=== PATIENT | female | born 1980 | race African-American/Black ===

== ENCOUNTER 2017-07-19 14:17 | Outpatient (CLI) | payer MEDICAID | END 2017-07-19 14:18 | disposition critical access hospital (66) | LOC: EMS 14:17 | PROVIDERS: ATTEND Surgery | DX: O72.1 Other immediate postpartum hemorrhage (principal); R42 Dizziness and giddiness; R10.9 Unspecified abdominal pain | CPT/HCPCS: A0425; A0427 ==

== ENCOUNTER 2017-07-19 14:33 | Inpatient (IN) | payer MEDICAID ==
[2017-07-19] MEDS ORDERED: SODIUM CHLORIDE 0.9% 1,000 ML IV ONE (14:39)
[2017-07-19] MEDS ORDERED: OXYTOCIN 10 UNIT/ML VIAL IV ONE (14:41)
--- NOTE | 2017-07-19 14:42 | ED Physician Documentation ---
History of Present Illness - Stated complaint Stated Complaint: POST COMPLICATION - History obtained from History obtained from: Patient - History of Present Illness Timing: Other (36-year-old otherwise healthy who just gave today and had a lot of blood loss with some hypotension in route. She received 10 Units of Pitocin IM.) Review of Systems Ten Systems: 10 systems reviewed and negative Constitutional: reports: Reviewed and negative Nose: reports: Reviewed and negative Cardiac: reports: Reviewed and negative Respiratory: reports: Reviewed and negative PD PAST MEDICAL HISTORY - Past Medical History Past Medical History: No - Past Surgical History Past Surgical History: No - Present Medications Home Medications: Ambulatory Orders Medication Instructions Recorded Confirmed No Known Home Medications [No 07/19/17 07/19/17 Known Home Medications] - Allergies Allergies/Adverse Reactions: Allergies Allergy/AdvReac Type Severity Reaction Status Date / Time No Known Drug Allergies Allergy Verified 07/19/17 14:42 - Social History Does the pt smoke?: No Does the pt drink ETOH?: No Does the pt have substance abuse?: No - Family History Family history: reports: Non contributory PD ED PE NORMAL - Vitals Vital signs reviewed: Yes (tachycardic, not hypotensive) - General General: Alert and oriented X 3, No acute distress - HEENT HEENT: PERRL, EOMI - Neck Neck: Supple, no meningeal sign, No bony TTP - Cardiac Cardiac: RRR, No murmur, Strong equal pulses - Respiratory Respiratory: No respiratory distress, Clear bilaterally - Abdomen Abdomen: Non tender, Other (firm fundus) - Back Back: No CVA TTP, No spinal TTP - Extremities Extremities: No edema, No calf tenderness / cord - Neuro Neuro: Alert and oriented X 3, Normal speech - Psych Psych: Normal mood, Normal affect Results - Vitals Vitals: Vital Signs - 24 hr 07/19/17 14:38 Heart Rate 112 H Respiratory 20 Rate Blood Pressure 121/86 H O2 Saturation 100 Oxygen O2 Source Room air - Labs Labs: Laboratory Tests 07/19/17 14:35 WBC 25.5 H RBC 3.48 L Hgb 10.3 L Hct 30.4 L MCV 87.5 MCH 29.5 MCHC 33.7 RDW 13.0 Plt Count 246 MPV 8.4 PD MEDICAL DECISION MAKING - ED course ED course: 36-year-old woman with hemorrhage. Labs were checked and Pitocin was started. Do not think she needs uncrossed matched blood urgently she seems hemodynamically okay. Dr. Pena, OB was at bedside on arrival. He will admit her for further evaluation and treatment, her initial H&H is reassuring but will need to be trended. Departure - Departure Disposition: 66 [facility] DC/Xfer Clinical Impression: hemorrhage Qualifiers: hemorrhage type: secondary hemorrhage Qualified Code(s): O72.2 - Delayed and secondary hemorrhage Condition: Stable
[2017-07-19 14:53] LABS: BASOPHILS % (AUTO) 0.1 %; HGB - HEMOGLOBIN 10.3 g/dL (12.0-16.0); LYMPHOCYTES % (AUTO) 5.5 %; MEAN CORPUSCULAR HEMOGLOBIN 29.5 pg (27.0-31.0); MEAN CORPUSCULAR HGB CONC 33.7 g/dL (32.0-36.0); MEAN CORPUSCULAR VOLUME 87.5 fL (81.0-99.0); MEAN PLATELET VOLUME 8.4 fL (7.9-10.8); MONOCYTES % (AUTO) 4.4 %; PLT - PLATELET COUNT 246 10^3/uL (130-450); RED BLOOD COUNT 3.48 10^6/uL (4.20-5.40); WHITE BLOOD COUNT 25.5 x10^3/uL (4.8-10.8)
[2017-07-19 14:56] LABS: ABNORMAL LYMPHS % (MANUAL) 0 %; BAND NEUTROPHILS % (MANUAL) 0 %
[2017-07-19] MEDS ORDERED: HYDROmorphone 1 MG/ML CARPUJECT IVP STA (15:15)
[2017-07-19] MEDS ORDERED: HYDROmorphone 1 MG/ML CARPUJECT ONE (15:17)
[2017-07-19] MEDS ORDERED: ONDANSETRON 4 MG/2 ML VIAL IVP PRN (15:19)
[2017-07-19] MEDS ORDERED: SODIUM CHLORIDE FLUSH 0.9% 10 ML SYRINGE IVP PRN (15:19)
[2017-07-19 15:20] LABS: ALBUMIN 2.8 g/dL (3.2-5.5); ALBUMIN/GLOBULIN RATIO 0.8 (1.0-2.2); BILIRUBIN,TOTAL 0.6 mg/dL (0.2-1.0); CALCIUM 8.8 mg/dL (8.5-10.3); CREATININE 0.7 mg/dL (0.4-1.0); TOTAL PROTEIN 6.2 g/dL (6.7-8.2)
[2017-07-19 15:55] LABS: LYMPHOCYTES # (MANUAL) 1.3 10^3/uL (1.5-3.5); LYMPHOCYTES % (MANUAL) 5 %; MONOCYTES # (MANUAL) 1.8 10^3/uL (0.0-1.0); NEUTROPHILS # (MANUAL) 22.4 10^3/uL (1.5-6.6); NEUTROPHILS % (MANUAL) 88 %; PLATELET MORPHOLOGY RARE GIANT PLATELETS (NORMAL); RBC MORPHOLOGY (MULTIPLE) NORMAL APPEARANCE (NORMAL)
[2017-07-19 15:56] LABS: DIFFERENTIAL COMMENT MANUAL DIFFERENTIAL; PLATELET ESTIMATE, MANUAL NORMAL (130-450,000) (NORMAL)
--- NOTE | 2017-07-19 16:23 | Ultrasound Report ---
EXAM: PELVIS ULTRASOUND, LIMITED EXAM DATE: 07/19/2017 04:05 PM. CLINICAL HISTORY: Post hemorrhage. COMPARISON: None. TECHNIQUE: Real-time scanning was performed with static images obtained. FINDINGS: The uterus measures 21.6 x 10.5 x 9.5 cm. Volume is 1356 cc. The endometrium is heterogeneous and thickened up to 3.2 cm. No evidence of vascularity. There is het erogeneous thickening within the cervix. No imaging of the adnexa was performed. IMPRESSION: 1. Enlarged uterus. 2. There is heterogeneous thickening of the endometrium and endocervical regions. No focal vascularit y is seen. Findings may represent blood clot and/or devascularized tissue. No sonographic evidence of vascular retained products of conception. [facility] Referring Provider Line: [phone] SITE ID: [id number]
[2017-07-19] MEDS: IBUPROFEN 600 MG TABLET PO PRN (17:48)
[2017-07-19] MEDS: HYDROcod/ACETAM 5/325 MG TABLET PO PRN (17:48)
[2017-07-19] MEDS ORDERED: HYDROmorphone 1 MG/ML CARPUJECT IVP SCH (19:00)
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
[2017-07-19 19:56] LABS: BASOPHILS % (AUTO) 0.1 %; EOSINOPHILS % (AUTO) 0.1 %; HGB - HEMOGLOBIN 7.1 g/dL (12.0-16.0); MEAN CORPUSCULAR HEMOGLOBIN 29.2 pg (27.0-31.0); MEAN CORPUSCULAR HGB CONC 33.5 g/dL (32.0-36.0); MEAN PLATELET VOLUME 8.2 fL (7.9-10.8); MONOCYTES % (AUTO) 7.3 %; NEUTROPHILS % (AUTO) 82.5 %; PLT - PLATELET COUNT 205 10^3/uL (130-450); RED BLOOD COUNT 2.42 10^6/uL (4.20-5.40); RED CELL DISTRIBUTION WIDTH 13.1 % (12.0-15.0); WHITE BLOOD COUNT 20.4 x10^3/uL (4.8-10.8)
[2017-07-19 20:02] LABS: ABNORMAL LYMPHS % (MANUAL) 0 %
[2017-07-19] MEDS: oxyCOD/ACETAMIN 5 MG/325 MG TABLET PO PRN (20:15)
[2017-07-19 20:18] LABS: BAND NEUTROPHILS % (MANUAL) 2 %; LYMPHOCYTES % (MANUAL) 10 %; NEUTROPHILS # (MANUAL) 17.3 10^3/uL (1.5-6.6); NEUTROPHILS % (MANUAL) 83 %; PLATELET ESTIMATE, MANUAL NORMAL (130-450,000) (NORMAL); PLATELET MORPHOLOGY NORMAL APPEARANCE (NORMAL)
[2017-07-20] MEDS: HYDROcod/ACETAM 5/325 MG TABLET PO PRN (00:50)
[2017-07-20] MEDS: IBUPROFEN 600 MG TABLET PO PRN ×2 (00:50→15:49)
[2017-07-20 05:21] LABS: MEAN CORPUSCULAR HEMOGLOBIN 29.2 pg (27.0-31.0); MEAN CORPUSCULAR HGB CONC 33.5 g/dL (32.0-36.0); MEAN CORPUSCULAR VOLUME 87.2 fL (81.0-99.0); MEAN PLATELET VOLUME 7.9 fL (7.9-10.8); MONOCYTES % (AUTO) 5.4 %; NEUTROPHILS % (AUTO) 74.5 %; PLT - PLATELET COUNT 193 10^3/uL (130-450); RED BLOOD COUNT 2.21 10^6/uL (4.20-5.40); RED CELL DISTRIBUTION WIDTH 13.1 % (12.0-15.0); WHITE BLOOD COUNT 15.2 x10^3/uL (4.8-10.8)
[2017-07-20 05:22] LABS: BASOPHILS # (AUTO) 0.1 10^3/uL (0.0-0.1); BASOPHILS % (AUTO) 0.4 %; EOSINOPHILS # (AUTO) 0.1 10^3/uL (0.0-0.7); EOSINOPHILS % (AUTO) 0.7 %; LYMPHOCYTES # (AUTO) 2.9 10^3/uL (1.5-3.5); MONOCYTES # (AUTO) 0.8 10^3/uL (0.0-1.0); NEUTROPHILS # (AUTO) 11.3 10^3/uL (1.5-6.6)
[2017-07-20 05:25] LABS: HGB - HEMOGLOBIN 6.5 g/dL (12.0-16.0)
--- NOTE | 2017-07-20 07:32 | PROVIDER PROGRESS NOTE ---
Subjective - Prog Note Date Prog Note Date: 07/20/17 Prog Note Time: 06:30 - Subjective Pt reports feeling: No change Subjective: Mrs. Conway feels well but very weak. She has gotten up to void and walk for short distances around the room. She is breast-feeding without difficulty. She reports no syncopal episodes, chest pain, shortness of breath, orthostatic dizziness or continued uterine bleeding. Baby is doing well. She continues to note uterine contractions but much less intensity than yesterday during the Pitocin infusion started on admission. We discussed her morning hemoglobin of 6.5 and possible problems associated with it such as syncope poor exercise tolerance extreme fatigue etc. The benefits of transfusion were explained mostly faster recovery from delivery. Also, we discussed some of the drawbacks such as transfusion reaction undetected hepatitis or HIV. At this point, the patient would like to avoid transfusion and determine if she has enough strength and endurance as she resumes more normal activity. Objective - Vital Signs/Intake & Output Vital Signs: Vital Signs x48h Temp Pulse Resp BP Pulse Ox 07/20/17 06:58 117/70 99 07/20/17 05:00 98.2 F 87 16 109/62 98 07/19/17 23:35 98.6 F 83 16 111/65 Intake & Output: Intake & Output 07/17/17 07/18/17 07/19/17 07/20/17 23:59 23:59 23:59 23:59 Intake Total 1250 Output Total 260 Balance 990 - Lab Results Fish Bones: 07/20/17 05:10 07/19/17 14:35 Other Labs: Lab Results x24hrs 07/20/17 07/19/17 Range/Units 05:10 19:50 WBC 15.2 H 20.4 H (4.8-10.8) x10^3/uL RBC 2.21 L 2.42 L (4.20-5.40) 10^6/uL Hgb 6.5 L* 7.1 L (12.0-16.0) g/dL Hct 19.3 L* 21.1 L (37.0-47.0) % MCV 87.2 87.0 (81.0-99.0) fL MCH 29.2 29.2 (27.0-31.0) pg MCHC 33.5 33.5 (32.0-36.0) g/dL RDW 13.1 13.1 (12.0-15.0) % Plt Count 193 205 (130-450) 10^3/uL MPV 7.9 8.2 (7.9-10.8) fL Neut # 11.3 H Not Reportable Lymph # 2.9 Not Reportable Antelope # 0.8 Not Reportable Eos # 0.1 Not Reportable Baso # 0.1 Not Reportable Absolute Nucleated RBC 0.01 Not Reportable Total Counted 100 Band Neuts % (Manual) 2 (0 - 10) % Abnorm Lymph % (Manual) 0 % Nucleated RBC % 0.0 Not Reportable Neutrophils # (Manual) 17.3 H (1.5-6.6) 10^3/uL Lymphocytes # (Manual) 2.0 (1.5-3.5) 10^3/uL Monocytes # (Manual) 1.0 (0.0-1.0) 10^3/uL Eosinophils # (Manual) 0.0 (0-0.7) 10^3/uL Basophils # (Manual) 0.0 (0-0.1) 10^3/uL Manual Slide Review Indicated Platelet Estimate NORMAL (130-450,000) (NORMAL) Platelet Morphology NORMAL APPEARANCE (NORMAL) RBC Morph Micro Appear 1+ HYPOCHROMASIA (NORMAL) Physical Exam - Physical Exam General: positive: No acute distress, Other (Fairly alert cooperative and oriented) HEENT: positive: Moist mucous membranes, Dentition normal Neck: positive: Supple w/out meningeal sx Cardiac: positive: Regular Rate, Murmur Present (Flow murmur but no rubs clicks or diastolic component) Resipratory: positive: Clear to ausultation maranda Abdomen: positive: Normal Bowel sounds, Other (Nontender nondistended) Female : positive: Normal external (Pad check shows little new vaginal bleeding, no foul smell), Enlarged uterus (16 weeks size, firm nontender), Putty Worker present Extremities: positive: Non tender Skin: positive: Warm and dry, Pale Neurologic: positive: Alert and Oriented X 3, Normal motor/no weakness, Normal Sensation, Normal Speech Assessment/Plan - Assessment/Plan Assessment: Shonda Conway had a hemorrhage in which 1600 cc of blood was reported as lost and is now equilibrated to a hemoglobin of 6.5. She is tolerating her anemia well but has not been challenged by trying to resume her normal activity. She prefers to avoid transfusion if possible. 2 units of packed red blood cells are still on hold. seems to be doing well. Plan: PLAN * Patient instructed to resume normal activity including walking the rojas toileting breast-feeding etc. * If patient is unable to resume normal activities will revisit the transfusion decision. * Begin supplemental iron oral and may begin IV iron supplementation. * Anticipate at least 1 more day of observation to ensure she is recovered.
[2017-07-20] MEDS ORDERED: FAMOTIDINE 20 MG TABLET PO SCH (09:00)
[2017-07-20] MEDS: oxyCOD/ACETAMIN 5 MG/325 MG TABLET PO PRN ×3 (10:23→21:28)
[2017-07-20] MEDS: POLYETHYLENE GLYCOL 3350 17 GM PACKET PO SCH (10:25)
[2017-07-20] MEDS: SODIUM CHLORIDE FLUSH 0.9% 10 ML SYRINGE IVP SCH ×4 (10:30→15:50)
--- NOTE | 2017-07-20 15:15 | PROVIDER PROGRESS NOTE ---
Subjective - Prog Note Date Prog Note Date: 07/20/17 Prog Note Time: 09:45 - Subjective Pt reports feeling: Worse (Pt C/O fatigue. Hgb is 6.4 gms. at thitime she has changed her mind and wants Transfusion. Reviewed Transfusion Rxn, blood borne pathogens. She accepts risks and desires bolld Anemia, will transfuse 2 units PRBC.) Objective - Vital Signs/Intake & Output Vital Signs: Vital Signs x48h Temp Pulse Pulse Resp BP BP BP 07/20/17 13:02 36.8 C 78 15 114/68 07/20/17 11:31 36.7 C 82 16 114/70 07/20/17 10:15 36.7 C 93 18 102/60 07/20/17 10:05 36.4 C L 89 20 102/51 L 07/20/17 09:56 36.6 C 82 16 108/63 07/20/17 08:00 36.8 C 79 16 111/67 Pulse Ox 07/20/17 13:02 99 07/20/17 11:31 99 07/20/17 10:15 07/20/17 10:05 07/20/17 09:56 07/20/17 08:00 99 Intake & Output: Intake & Output 07/17/17 07/18/17 07/19/17 07/20/17 23:59 23:59 23:59 23:59 Intake Total 1250 400 Output Total 260 450 Balance 990 -50 - Lab Results Fish Bones: 07/20/17 05:10 07/19/17 14:35 Other Labs: Lab Results x24hrs 07/20/17 07/19/17 Range/Units 05:10 19:50 WBC 15.2 H 20.4 H (4.8-10.8) x10^3/uL RBC 2.21 L 2.42 L (4.20-5.40) 10^6/uL Hgb 6.5 L* 7.1 L (12.0-16.0) g/dL Hct 19.3 L* 21.1 L (37.0-47.0) % MCV 87.2 87.0 (81.0-99.0) fL MCH 29.2 29.2 (27.0-31.0) pg MCHC 33.5 33.5 (32.0-36.0) g/dL RDW 13.1 13.1 (12.0-15.0) % Plt Count 193 205 (130-450) 10^3/uL MPV 7.9 8.2 (7.9-10.8) fL Neut # 11.3 H Not Reportable Lymph # 2.9 Not Reportable Beltrami # 0.8 Not Reportable Eos # 0.1 Not Reportable Baso # 0.1 Not Reportable Absolute Nucleated RBC 0.01 Not Reportable Total Counted 100 Band Neuts % (Manual) 2 (0 - 10) % Abnorm Lymph % (Manual) 0 % Nucleated RBC % 0.0 Not Reportable Neutrophils # (Manual) 17.3 H (1.5-6.6) 10^3/uL Lymphocytes # (Manual) 2.0 (1.5-3.5) 10^3/uL Monocytes # (Manual) 1.0 (0.0-1.0) 10^3/uL Eosinophils # (Manual) 0.0 (0-0.7) 10^3/uL Basophils # (Manual) 0.0 (0-0.1) 10^3/uL Manual Slide Review Indicated Platelet Estimate NORMAL (130-450,000) (NORMAL) Platelet Morphology NORMAL APPEARANCE (NORMAL) RBC Morph Micro Appear 1+ HYPOCHROMASIA (NORMAL)
[2017-07-20] MEDS: HYDROCORTISONE/PRAMOXINE 10 GM PR PRN (15:50)
[2017-07-20 18:06] LABS: BASOPHILS # (AUTO) 0.1 10^3/uL (0.0-0.1); BASOPHILS % (AUTO) 0.5 %; EOSINOPHILS # (AUTO) 0.2 10^3/uL (0.0-0.7); EOSINOPHILS % (AUTO) 1.5 %; HGB - HEMOGLOBIN 8.7 g/dL (12.0-16.0); LYMPHOCYTES # (AUTO) 3.3 10^3/uL (1.5-3.5); LYMPHOCYTES % (AUTO) 25.7 %; MEAN CORPUSCULAR HEMOGLOBIN 29.7 pg (27.0-31.0); MEAN CORPUSCULAR HGB CONC 33.7 g/dL (32.0-36.0); MEAN CORPUSCULAR VOLUME 88.1 fL (81.0-99.0); MONOCYTES # (AUTO) 0.8 10^3/uL (0.0-1.0); NEUTROPHILS # (AUTO) 8.6 10^3/uL (1.5-6.6); NEUTROPHILS % (AUTO) 66.3 %; PLT - PLATELET COUNT 195 10^3/uL (130-450); RED BLOOD COUNT 2.92 10^6/uL (4.20-5.40); RED CELL DISTRIBUTION WIDTH 13.6 % (12.0-15.0)
[2017-07-20] MEDS ORDERED: DOCUSATE SODIUM 100 MG CAPSULE PO SCH (22:00)
--- NOTE | 2017-07-21 08:39 | Discharge Plan ---
Discharge Plan Disposition: 01 Home, Self Care Condition: Good Diet: Regular (Please provide instructions for a high iron diet inclusive of red meat spinach kale etc. Enforce the need to continue vitamins and supplemental iron.) Activity Restrictions: Activity as Tolerated Shower Restrictions: No Driving Restrictions: No No Smoking: If you smoke, Please STOP! Call for help. Follow-up with: Armond Pena MD [Provider Admit Priv/Credential] -
[2017-07-21 08:43] VITALS: BP 112/73
[2017-07-21] MEDS: HYDROCORTISONE/PRAMOXINE 10 GM PR PRN (09:18)
[2017-07-21] MEDS: POLYETHYLENE GLYCOL 3350 17 GM PACKET PO SCH (09:19)
--- NOTE | 2017-07-21 09:19 | DISCHARGE SUMMARY ---
Physician: Armond Pena MD DATE OF ADMISSION: 07/19/2017 DATE OF DISCHARGE: 07/21/2017 DIAGNOSES 1. hemorrhage reported at 1600 mL. 2. Recent of macrosomic at [facility]. 3. Symptomatic anemia requiring transfusion of 2 units of packed red blood cells. COMPLICATIONS NONE HISTORY: The patient is a 36-year-old, woman who had an uneventful at [facility] of a 9 pound, 8 ounce . Immediately , she had some bleeding that stopped to return within a half an hour of heavy bleeding. The patient was tachycardic and had unstable blood pressure. At the [facility], she was given Pitocin 10 mg and transported to the hospital via [facility]. Reference my typewritten H and P. HOSPITAL COURSE: Examination in the emergency room found no lacerations of the vulva, vagina, or cervix. IV Pitocin was begun, as well as second line IV access with normal saline. Ultrasound documented no active bleeding or contents within the uterus. Patient was tachycardic, but her pressures stabilized. Baseline Hemoglobin value from [facility] was 10.8 and hemoglobin at ER presentation was 10.3 g. After 6 hours hemoglobin equilibrated to 7.1 inpatient remained hemodynamically stable. However by morning it had dropped to 6.5 g.. The patient was stabilized, and admitted to Labor and Delivery for further observation. She was given supportive care and noted fatigue, but no syncope or other immediate symptoms. She remained at a low activity level. Repeat hemoglobin in the a.m. was 6.5. After initial counseling, she declined a transfusion. However, once she became more active, her fatigue worsened and she elected to be transfused. Two units of packed red blood cells were given, and patient's energy level and feeling of wellbeing immediately improved. She remained overnight with supportive care and felt ready for discharge in the morning. She was given warning signs and callback instructions. She will report any fevers, chills, abdominal pain, return of heavy bleeding or foul discharge. She will be [facility] 2 weeks for repeat hemoglobin and hematocrit. She will make arrangements for normal care with [facility]. DISCHARGE MEDICATIONS 1. vitamins with iron. 2. Ferrous sulfate 325 b.i.d. 3. Colace 250 b.i.d. TD: 07/21/2017 09:18 MTDBill
[2017-07-21] MEDS: IBUPROFEN 600 MG TABLET PO PRN (09:20)
[2017-07-21] MEDS: oxyCOD/ACETAMIN 5 MG/325 MG TABLET PO PRN (09:20)
== END 2017-07-21 09:25 | disposition home or self-care (01) | DRG 774 ==
LOC: EDUNIT# → EDBD → ED 14:33 → FBP 15:19
PROVIDERS: ADMIT Obstetrics & Gynecology; ATTEND Obstetrics & Gynecology
PROC: 30233N1 Transfusion of Nonautologous Red Blood Cells into Peripheral Vein, Percutaneous Approach (ICD-10-PCS; principal; 2017-07-20)
DX: O72.1 Other immediate postpartum hemorrhage (principal); O90.81 Anemia of the puerperium; D50.0 Iron deficiency anemia secondary to blood loss (chronic)
CPT/HCPCS: 36415; 76857; 80053; 83690; 85025; 85384; 85610; 85730; 86850; 86900; 86901; 86920; 99284; 99285

== ENCOUNTER 2020-04-02 08:00 | Outpatient (CLI) | payer MEDICAID ==
[2020-04-02 19:08] LABS: BASOPHILS % (AUTO) 0.7 %; EOSINOPHILS # (AUTO) 0.3 10^3/uL (0.0-0.7); EOSINOPHILS % (AUTO) 5.2 %; HGB - HEMOGLOBIN 11.4 g/dL (12.0-16.0); LYMPHOCYTES # (AUTO) 1.9 10^3/uL (1.5-3.5); LYMPHOCYTES % (AUTO) 30.7 %; MEAN CORPUSCULAR HEMOGLOBIN 28.7 pg (27.0-31.0); MEAN CORPUSCULAR HGB CONC 31.5 g/dL (32.0-36.0); MEAN CORPUSCULAR VOLUME 91.2 fL (81.0-99.0); MEAN PLATELET VOLUME 11.1 fL (7.9-10.8); MONOCYTES # (AUTO) 0.4 10^3/uL (0.0-1.0); MONOCYTES % (AUTO) 6.1 %; NEUTROPHILS # (AUTO) 3.5 10^3/uL (1.5-6.6); PLT - PLATELET COUNT 263 10^3/uL (130-450); RED BLOOD COUNT 3.97 10^6/uL (4.20-5.40); RED CELL DISTRIBUTION WIDTH 12.2 % (12.0-15.0); WHITE BLOOD COUNT 6.1 x10^3/uL (4.8-10.8)
[2020-04-02 19:35] LABS: ALBUMIN/GLOBULIN RATIO 1.4 (1.0-2.2); ALKALINE PHOSPHATASE 75 IU/L (42-121); ALT ALANINE AMINOTRANSFERASE 16 IU/L (10-60); AST ASPARTATE AMINOTRANSFERASE 16 IU/L (10-42); BILIRUBIN,TOTAL 0.4 mg/dL (0.2-1.0); BUN - BLOOD UREA NITROGEN 18 mg/dL (6-20); CALCIUM 9.3 mg/dL (8.5-10.3); CARBON DIOXIDE - CO2 28 mmol/L (21-32); CHLORIDE 102 mmol/L (101-111); CREATININE 1.5 mg/dL (0.4-1.0); GLUCOSE 104 mg/dL (70-100); SODIUM 144 mmol/L (135-145); TOTAL PROTEIN 6.9 g/dL (6.7-8.2)
[2020-04-02 20:02] LABS: CRP - C-REACTIVE PROTEIN < 1.0 mg/dL (0-1.0)
== END 2020-04-02 23:59 | disposition home or self-care (01) ==
LOC: LAB.WCP 08:00
PROVIDERS: ATTEND Family Medicine
DX: R53.83 Other fatigue (principal); Z83.79 Family history of other diseases of the digestive system
CPT/HCPCS: 36415; 80053; 84443; 85025; 85651; 86038; 86140